=== PATIENT | female | born 1940 | race Caucasian/White ===

== ENCOUNTER → 2017-06-04 | Outpatient (CLI) | payer OTHER ==
[~2017-06-04] MED LIST: HEALTHY HEART1 EAC1 PO; MOTRIN600 MG PO; NORCO 5/3251 TABLET PO; NORTRIPTYLINE H25 MG PO; OMEPRAZOLE40 M1 PO; VALIUM2 MG PO
== END | disposition home or self-care (01) ==
LOC: AMB 08:24
DX: R32 Unspecified urinary incontinence (principal); K21.9 Gastro-esophageal reflux disease without esophagitis; H91.93 Unspecified hearing loss, bilateral; R31.21 Asymptomatic microscopic hematuria
CPT/HCPCS: 99212

== ENCOUNTER → 2017-06-26 | Outpatient (CLI) | payer OTHER | END | disposition home or self-care (01) | LOC: RAD 08:50 | DX: N26.1 Atrophy of kidney (terminal) (principal); N94.89 Other specified conditions associated with female genital organs and menstrual cycle | CPT/HCPCS: 76770 ==

== ENCOUNTER 2017-07-11 06:37 | Day surgery (SDC) | payer OTHER ==
[~2017-07-11] VITALS: Ht 162.6 cm; Wt 60.9 kg
[~2017-07-11 06:37] MED LIST changes: +CAL-CITRATE PL1 EACH PO; +VITAMIN B-2100 MG PO
[2017-07-11 07:16] VITALS: BP 131/71
[2017-07-11 09:40] VITALS: BP 118/69
[2017-07-11 10:05] VITALS: BP 148/77
== END 2017-07-11 10:25 | disposition home or self-care (01) ==
LOC: SDC 06:37
PROC: 0TJB8ZZ Inspection of Bladder, Via Natural or Artificial Opening Endoscopic (ICD-10-PCS; principal; 2017-07-11)
DX: R31.21 Asymptomatic microscopic hematuria (principal); K21.9 Gastro-esophageal reflux disease without esophagitis
CPT/HCPCS: J3010

== ENCOUNTER 2018-06-12 12:46 | Observation (INO) | payer OTHER ==
[~2018-06-12] VITALS: Ht 162.6 cm; Wt 58.6 kg
[~2018-06-12 12:46] MED LIST changes: -VITAMIN B-2100 MG PO; +VITAMIN B-6100 MG PO
[2018-06-12 14:40] LABS: HEMATOCRIT 38.5 % (36.0-46.0); HEMOGLOBIN 13.1 G/DL (11.9-15.5); MCH 30.9 PG (29.0-34.0); MCV 90.8 FL (83-99); PLATELET COUNT 273 K/uL (156-360); RBC DIS.WIDTH-CV 12.7 % (11.8-14.6); RBC DIS.WIDTH-SD 42.4 % (39-53); RED BLOOD COUNT 4.24 M/uL (3.80-5.20); WHITE BLOOD COUNT 14.3 K/uL (4.1-10.2)
[2018-06-12 14:48] LABS: ALBUMIN 3.9 g/dL (3.2-4.8); CHLORIDE 107 mEq/L (99-109); POTASSIUM 3.7 mEq/L (3.7-5.4); SODIUM 140 mEq/L (136-147)
[2018-06-12 14:51] LABS: GLUCOSE 167 mg/dL (70-99); TOTAL PROTEIN 6.3 g/dL (6.4-8.3)
[2018-06-12 14:52] LABS: TOTAL BILIRUBIN 0.6 mg/dL (0.0-1.0)
[2018-06-12 14:54] LABS: ALKALINE PHOSPHATASE 61 IU/L (3-129); CREATININE 0.8 mg/dL (0.6-1.3); GFR ESTIMATE (CALCULATED) > 59 mL/min/
[2018-06-12 14:55] LABS: UREA NITROGEN (BUN) 14 mg/dL (9-23)
[2018-06-12 14:56] LABS: AST (GOT) 17 IU/L (2-34); DIRECT BILIRUBIN 0.2 mg/dL (0.0-0.3)
[2018-06-12 14:57] LABS: ALT (GPT) 14 IU/L (3-49)
[2018-06-12 14:58] LABS: LIPASE 10 U/L (1.0-51.0)
[2018-06-12 15:14] LABS: APPEARANCE CLEAR ((CLEAR)); BILIRUBIN NEGATIVE; BLOOD NEGATIVE; COLOR YELLOW ((YELLOW)); GLUCOSE (STRIP) NEGATIVE; KETONES 20; LEUKOCYTES NEGATIVE; NITRITE NEGATIVE; PROTEIN (STRIP) NEGATIVE; SPECIFIC GRAVITY 1.015 (1.000-1.030); UCUL ADDED? NO; UROBILINOGEN 0.2 MG/DL (0.2-1.0)
[2018-06-12 17:46] VITALS: BP 118/53
[2018-06-12 19:15] VITALS: BP 103/55
[2018-06-13] VITALS: BP 112/60
[2018-06-13 03:15] VITALS: BP 98/56
[2018-06-13 05:55] LABS: HEMATOCRIT 36.3 % (36.0-46.0); MCH 30.2 PG (29.0-34.0); MCHC 33.1 G/DL (30.0-36.0); MCV 91.2 FL (83-99); PLATELET COUNT 271 K/uL (156-360); RBC DIS.WIDTH-CV 12.7 % (11.8-14.6); RBC DIS.WIDTH-SD 43.2 % (39-53); RED BLOOD COUNT 3.98 M/uL (3.80-5.20); WHITE BLOOD COUNT 8.8 K/uL (4.1-10.2)
[2018-06-13 06:23] LABS: CHLORIDE 108 MEQ/L (99-109); CREATININE 0.8 MG/DL (0.6-1.3); GFR ESTIMATE (CALCULATED) > 59 mL/min/; POTASSIUM 3.5 MEQ/L (3.7-5.4); SODIUM 142 MEQ/L (136-147); UREA NITROGEN (BUN) 9 mg/dL (9-23)
[2018-06-13 06:25] LABS: GLUCOSE 102 mg/dL (70-99)
[2018-06-13 07:58] VITALS: BP 108/55
[2018-06-13 09:45] LABS: HEMOGLOBIN A1c (GLYCOHEMOGLOB) 5.8 % (Below 5.7)
[2018-06-13 11:49] VITALS: BP 125/56
[2018-06-13] MEDS ORDERED: ZOFRAN4 MG PO (14:43)
[2018-06-13 20:00] VITALS: BP 107/52
== END 2018-06-13 21:40 | disposition home or self-care (01) ==
LOC: EME 12:46 → EDOF 16:01 → 4SOUTH 16:01 → ENRESERV 16:04 → 4SOUTH 17:27
PROVIDERS: Emergency Medicine; Physician Assistant Medical
DX: R11.2 Nausea with vomiting, unspecified (principal); K21.9 Gastro-esophageal reflux disease without esophagitis; R42 Dizziness and giddiness; D72.829 Elevated white blood cell count, unspecified; R73.03 Prediabetes; K44.9 Diaphragmatic hernia without obstruction or gangrene; H91.90 Unspecified hearing loss, unspecified ear; Z98.1 Arthrodesis status; Z80.0 Family history of malignant neoplasm of digestive organs; Z83.3 Family history of diabetes mellitus
CPT/HCPCS: 74176; 76705; 80048; 80076; 81003; 83036; 83690; 85027; C9113; G0378; J1650; J2405; J2765; J7030

== ENCOUNTER → 2018-06-24 | Outpatient (CLI) | payer OTHER ==
[~2018-06-24] MED LIST changes: +ZOFRAN4 MG PO
== END | disposition home or self-care (01) ==
LOC: RAD 09:57
DX: N28.1 Cyst of kidney, acquired (principal)
CPT/HCPCS: 76770